=== PATIENT | female | born 1950 | race Two or more races ===

== ENCOUNTER 2024-08-27 08:40 | Day surgery (SDC) | payer MEDICARE, MEDICAID, SELFPAY ==
[2024-08-26 09:54] VITALS: BMI 35.9
[2024-08-26 11:17] LABS: Basophils % (Auto) 1 % (0-2.5); Eosinophils # (Auto) 0.1 Thou/mm3 (0.0-0.5); Eosinophils % (Auto) 3 % (0-10); Hematocrit 38.9 % (36.0-46.0); Immature Granulocytes % (Auto) 0 % (0-0); Lymphocytes # (Auto) 1.6 Thou/mm3 (1.0-4.8); Lymphocytes % (Auto) 36 % (10-50); Mean Corpuscular HGB Conc 33.4 g/dl (31.0-37.0); Mean Corpuscular Hemoglobin 30.2 pg (25.0-35.0); Mean Corpuscular Volume 90 fL (80-100); Monocytes # (Auto) 0.3 Thou/mm3 (0.0-0.8); Monocytes % (Auto) 7 % (0-12); Neutrophils # (Auto) 2.4 Thou/mm3 (1.8-7.7); Neutrophils % (Auto) 53 % (37-80); Nucleated Red Blood Cell % 0 /100 WBC (0); Platelet Count 227 Thou/mm3 (140-440); RDW Standard Deviation 45.5 fL (36.4-46.3); Red Blood Count 4.31 Miln/mm3 (4.00-5.20); White Blood Count 4.5 Thou/mm3 (3.6-11.0)
[2024-08-26 11:45] LABS: Alanine Aminotransferase 14 U/L (10-49); Albumin, Serum 4.3 gm/dL (3.4-4.8); Albumin/Globulin Ratio 1.3 (1.2-2.2); Alkaline Phosphatase 110 U/L (46-116); Anion Gap 9 (7-16); Aspartate Amino Transferase 23 U/L (0-34); BUN/Creatinine Ratio 16 Ratio (12-20); Bilirubin,Total 0.8 mg/dL (0.3-1.2); Blood Urea Nitrogen 11 mg/dL (9-23); Calcium 9.9 mg/dL (8.3-10.6); Calcium (Corrected) 9.9 mg/dL (8.5-10.1); Carbon Dioxide 26.5 mMol/L (20.0-31.0); Chloride 103 mMol/L (98-107); Creatinine (Component) 0.7 mg/dL (0.6-1.3); Estimated Creatinine Clearance 61.1 mL/min (>60); Globulin 3.4 gm/dL (2.3-3.5); Glucose 158 mg/dL (74-106); Osmolality,Calculated 278 (275-295); Potassium 4.2 mMol/L (3.4-5.1); Sodium 138 mMol/L (136-145); Total Protein 7.7 gm/dL (5.7-8.2); eGFR > 60 See Note
[2024-08-27 09:30] VITALS: BP 175/96; PULSE 86; RESP 15; TEMP 37.1; O2SAT 98; BMI 32.3
[2024-08-27 10:48] VITALS: BP 139/71; PULSE 69; RESP 16; TEMP 36.6; O2SAT 97
--- NOTE | 2024-08-27 10:52 | ESOP_ITS ---
Date of Procedure 08/27/24 Pre Op Diagnosis Right lower back soft tissue mass Post Op Diagnosis Right lower back subfascial soft tissue mass Procedure Excision of subfascial soft tissue mass from right lower back Findings An approximately 3.5 cm lipomatous subfascial soft tissue mass of right lower back Procedure Description Patient brought into the operating room in supine position. After administration of monitored anesthesia care, patient was placed in left lateral decubitus position. Her right lower back was prepped and draped in standard surgical manner. After administration of local anesthesia an approximately 4 cm incision was made and dissection was deepened soft tissue. The mass was palpated noted to be subfascial. The fascia was opened and the underlying mass was circumferentially dissected out surrounding tissue and excised. The mass was measuring to be approximately 3.5 cm in diameter, it was lipomatous in geo ure. The wound was washed and irrigated. Fascia reapproximated with interrupted sutures using 2-0 Vicryl. Subcutaneous tissue closed with interrupted sutures using 2-0 Vicryl and the incision was closed with 4-0 Monocryl in subcuticular fashion. Dermabond applied. Patient tolerated the procedure well. She was placed in supine position. She was breathing spontaneously and without difficulty and was transferred to postanesthesia care in stable condition. Instruments, needles and sponge counts were reported to be correct x 2. Anesthesia MAC and local Pathology / specimen Other (Right lower back soft tissue mass) Estimated Blood Loss 2 Condition Stable Disposition PACU Surgeon Marcos Whyte MD Surgical Staff Operation Date: 08/27/24 11:45 <No data on this case meets the specified criteria>
[2024-08-27 11:00] VITALS: BP 151/80; PULSE 68; RESP 13; O2SAT 98
[2024-08-27 11:15] VITALS: BP 154/77; PULSE 68; RESP 14; TEMP 36.6; O2SAT 97
--- NOTE | 2024-08-27 12:31 | SUR.PHASEII ---
1048: Pt received in [facility] via gurney. Report from Ana DE LA ROSA and Dr. Blanco. Pt groggy. Easily aroused with eye opening. Resp even, unlabored. VS stable. Surgical site right lower back dry, clean, intact. No swelling, hematoma. Site secured with dermabond with no dressing. Denies pain. 1105: Pt more awake, alert. Resp even, unlabored. VS stable. Surgical site remains dry, clean, intact with no swelling, hematoma. Denies pain. Sitting up tolerating po fluids with no difficulty swallowing and no n/v. 1132: Pt fully awake, oriented x3. VS stable. Surgical site unchanged. Pt dressed. Assisted to transport chair. Ambulation steady. Pt requested daughter interpret for her. Both stated understanding of instructions. Pt also instructed to poultry picker her prescription at [facility] on [address]. Pt discharged from [facility] in stable condition.
== END 2024-08-27 11:32 | disposition home or self-care (01) ==
PROVIDERS: Anesthesiology; PCP Nurse Practitioner Family; Referring Provider Surgery; Visit Provider Surgery
PROC: (CPT 21931; principal; 2024-08-27 11:30)
DX: D17.1 Benign lipomatous neoplasm of skin and subcutaneous tissue of trunk (principal)
CPT/HCPCS: 21931; 36415; 80053; 85025; A4217; A4649; J0690; J2704; J3010; J3490

== ENCOUNTER 2025-01-09 05:55 | Day surgery (SDC) | payer MEDICARE, MEDICAID, SELFPAY ==
--- NOTE | 2025-01-06 07:00 | EKG_ITS ---
[facility] Test Date: 2025-01-06 Pat Name: FLAVIO MARIA Department: Room: - Gender: Female Machine Adjuster: ANITA : 1950 Requested By: Marcos Whyte Order Number: [id number] Reading MD: Marcos Whyte Measurements Intervals [place] Rate: 74 P: 41 NE: 167 QRS: 53 QRSD: 80 T: 55 QT: 390 QTc: 434 Interpretive Statements SINUS RHYTHM Compared to ECG 03/20/2024 11:00:54 No significant changes /store/S0/[id number].pdf
[2025-01-06 10:22] VITALS: BMI 39.1
[2025-01-06 11:56] LABS: Basophils # (Auto) 0.0 Thou/mm3 (0.0-0.2); Basophils % (Auto) 0 % (0-2.5); Eosinophils # (Auto) 0.1 Thou/mm3 (0.0-0.5); Eosinophils % (Auto) 2 % (0-10); Hematocrit 41.4 % (36.0-46.0); Hemoglobin 13.6 g/dL (12.0-16.0); Immature Granulocytes Auto 0.01 Thou/mm3 (0.00-0.00); Lymphocytes # (Auto) 2.1 Thou/mm3 (1.0-4.8); Lymphocytes % (Auto) 43 % (10-50); Mean Corpuscular HGB Conc 32.9 g/dl (31.0-37.0); Mean Corpuscular Hemoglobin 30.0 pg (25.0-35.0); Mean Corpuscular Volume 91 fL (80-100); Monocytes # (Auto) 0.4 Thou/mm3 (0.0-0.8); Monocytes % (Auto) 7 % (0-12); Neutrophils # (Auto) 2.3 Thou/mm3 (1.8-7.7); Neutrophils % (Auto) 47 % (37-80); Nucleated Red Blood Cell # 0.00 Thou/mm3 (0.00-0.00); Nucleated Red Blood Cell % 0 /100 WBC (0); Platelet Count 228 Thou/mm3 (140-440); RDW Standard Deviation 47.2 fL (36.4-46.3); Red Blood Count 4.54 Miln/mm3 (4.00-5.20); White Blood Count 4.9 Thou/mm3 (3.6-11.0)
[2025-01-06 12:16] LABS: Alanine Aminotransferase 39 U/L (10-49); Albumin, Serum 4.6 gm/dL (3.4-4.8); Albumin/Globulin Ratio 1.4 (1.2-2.2); Alkaline Phosphatase 128 U/L (46-116); Anion Gap 10 (7-16); Aspartate Amino Transferase 19 U/L (0-34); BUN/Creatinine Ratio 14 Ratio (12-20); Bilirubin,Total 0.7 mg/dL (0.3-1.2); Blood Urea Nitrogen 11 mg/dL (9-23); Calcium 9.8 mg/dL (8.3-10.6); Calcium (Corrected) 9.8 mg/dL (8.5-10.1); Carbon Dioxide 26.2 mMol/L (20.0-31.0); Chloride 104 mMol/L (98-107); Creatinine (Component) 0.8 mg/dL (0.6-1.3); Estimated Creatinine Clearance 52.6 mL/min (>60); Globulin 3.3 gm/dL (2.3-3.5); Glucose 144 mg/dL (74-106); Osmolality,Calculated 281 (275-295); Potassium 4.1 mMol/L (3.4-5.1); Sodium 140 mMol/L (136-145); Total Protein 7.9 gm/dL (5.7-8.2); eGFR > 60 See Note
--- NOTE | 2025-01-06 12:43 | SUR.PREOP ---
Pt is not taking prescribed propanolol for hypertension, pt stated she feel fine.
[2025-01-09] VITALS (7 sets, daily range): BP systolic 138–159; BP diastolic 66–82; PULSE 78–87; RESP 12–20; TEMP 36.8–37.1; O2SAT 95–99; BMI 37.5
[2025-01-09] MEDS: RINGERS LACTATED 1000 ML 1,000 ML 20 ML IV (06:48)
--- NOTE | 2025-01-09 08:46 | SUR.PHASEI ---
pt received from OR in recovery bay 1. pt asleep but responds to voice, breathing unlabored on oxymask 8l. v/s stable. pt dressing to left thigh dermabond x2 cdi. report received from Denita DE LA ROSA and Dr. Breen.
--- NOTE | 2025-01-09 08:51 | ESOP_ITS ---
Date of Procedure 01/09/25 Pre Op Diagnosis Left thigh soft tissue masses Post Op Diagnosis Left thigh soft tissue masses Procedure Excision of subcutaneous soft tissue from anterior left thigh Excision of subcutaneous soft tissue from lateral left thigh Findings An approximately 3.5 cm soft tissue mass in the anterior left thigh, 2 cm soft tissue mass in the lateral left thigh Procedure Description Patient brought into the operating room in supine position. After administration of general tracheal anesthesia, patient's left eye prepped and draped in standard surgical manner. She was noted to have 2 soft tissue masses in the left thigh, there was one in the anterior aspect of left thigh and the other 1 in the lateral aspect. The procedure started on the anterior aspect. After administration of local anesthesia 3 cm incision was made and dissection was deepened soft tissue. Underlying soft tissue mass was excised circumferen tially from surrounding tissue. There was lipomatous in nature, approximately 3.5 cm in diameter. Hemostasis achieved using electrocautery. Soft tissue reapproximated with interrupted sutures using 3-0 Vicryl and the incision was closed with 4-0 Monocryl in subcuticular fashion. I then turned my attention to patient's lateral left thigh soft tissue mass. The procedure was performed in similar fashion and patient was noted to have an approximately 2 cm lipomatous soft tissue mass. Dermabond applied on both incisions. Patient tolerated procedure well. She was extubated, breathing spontaneously and without difficulty and was transferred to postanesthesia care in stable condition. Instruments, needles and sponge counts were reported to be correct x 2. Anesthesia GETA and local Pathology / specimen Other (Left thigh soft tissue masses) Estimated Blood Loss 2 Condition Stable Disposition PACU Surgeon Marcos Whyte MD Surgical Staff Operation Date: 01/09/25 08:00 Case Staff Anesthesiologist: Wes Breen
--- NOTE | 2025-01-09 09:40 | SUR.PHASEII ---
pt awake and alert, breathing unlabored on room air. v/s stable. pt dressing to left thigh dermabond x2 cdi. pt able to ambulate to wheelchair with steady gait. d/c instructions given with daughter Gregoria in room, all questions answered. pt d/c via wheelchair with all belongings.
== END 2025-01-09 09:40 | disposition home or self-care (01) ==
PROVIDERS: Anesthesiology; PCP Nurse Practitioner Family; Referring Provider Surgery; Visit Provider Surgery
PROC: (CPT 27327; principal; 2025-01-09 08:00)
DX: R22.42 Localized swelling, mass and lump, left lower limb (principal); Z01.810 Encounter for preprocedural cardiovascular examination; F41.9 Anxiety disorder, unspecified
CPT/HCPCS: 27327; 36415; 80053; 85025; 93005; A4217; A4649; J0690; J1100; J2405; J2704; J3010; J3490; J7120